=== PATIENT | female | born 1985 | race Caucasian/White ===

== ENCOUNTER 2021-11-26 09:01 | Emergency (ER) | payer OTHER, SELFPAY ==
[2021-11-26 09:13] VITALS: BP 155/103; PULSE 109; RESP 18; TEMP 36.5; O2SAT 99; BMI 35.6
--- NOTE | 2021-11-26 09:27 | ED_ITS ---
HPI - Female Genitourinary General: Chief complaint: Vaginal Bleeding Stated complaint: vaginal bleeding Time Seen by Provider: 11/26/21 09:18 Source: patient Mode of arrival: ambulatory Limitations: no limitations History of Present Illness: Patient with complaints of menses starting approximately week ago. She states it went fairly normally for approximately for 5 days. She states she was supposed to stop her. On or Saturday. However she is continue to spot occasionally since then. Spotting is occasionally bright red. She states this is unusual for her. She still has some mild suprapubic abdominal cramping. She denies any fever or urinary symptoms. She denies any dysuria or hematuria. She has no nausea or vomiting. Past surgical history includes section. She denies tubal ligation or hysterectomy. She does not have a local primary care physician. She states she takes no medications and has no other medical problems. She does not smoke. MD elicited complaint: vaginal bleeding Onset (ago): week(s) (1) Location of symptoms: suprapubic Severity: mild Female Urogenital Radiation: Suprapubic Quality of pain: cramping (mild) Vaginal bleeding: scant, bright red and dark red Exacerbating factors: none Relieving factors: none Associated symptoms: Reports abdominal pain (Mild suprapubic cramping); Deny headache(s), nausea or vaginal discharge Treatment prior to arrival: none Date of Last Menstrual Period: 11/19/21 Review of Systems Const: Denies: fever(s) or chills Eyes: Denies: change in vision ENMT: Denies: throat pain Card: Denies: chest pain or palpitations Resp: Denies: dyspnea or wheezing GI: Reports: abdominal pain (Mild suprapubic cramping); Denies: nausea, vomiting, diarrhea, change in bowel habits or hematochezia : Reports: vaginal bleeding; Denies: flank pain, difficulty voiding, dysuria, urinary frequency, hematuria or vaginal discharge Musc: Denies: neck pain or back pain Skin/Breast: Denies: rash or pruritus Neuro: Denies: headache(s) or numbness in extremities Psych: Denies: anxiety Murphy/Lymph: Denies: enlarged lymph nodes PFSH ED PFSH: Social History (Updated 11/26/21 @ 09:32 by Ken Griffin MD) Smoking and tobacco status: never smoked Alcohol intake: never Female Reproductive History: Date of last menstrual period: 11/19/21 Physical Exam Const: COMMON NORMALS: no acute distress, patient oriented x3, no limitations and well nourished GENERAL APPEARANCE: cooperative HENMT: COMMON NORMALS: normocephalic and atraumatic HEAD & SCALP: nor mocephalic and atraumatic FACE & SINUS: normal facial exam Eye: COMMON NORMALS: EOMs intact bilaterally Neck/C-Spine: COMMON NORMALS: full ROM, no lymphadenopathy, supple and no meningeal signs GENERAL: Yes normal visual inspection Lymph: LYMPHATIC: no lymphadenopathy noted Chest: COMMONS NORMALS: normal inspection of the chest and normal palpation of entire chest wall CHEST: No Ecchymosis present and No rash Resp: COMMON NORMALS: normal respiratory effort, No retractions and clear to auscultation bilaterally EFFORT & INSPECTION: No respiratory distress AUSCULTATION: clear to auscultation bilaterally Cardio: COMMON NORMALS: regular rate, regular rhythm and Peripheral pulses 2+ throughout JUGULAR VENOUS DISTENTION: no JVD RATE: regular rate, tachycardic and Other (mild tachycardia, near normal) RHYTHM: regular rhythm PERIPHERAL PULSES: Peripheral pulses 2+ throughout GI: COMMON NORMALS: Normal to inspection, nondistended, normoactive bowel sounds present and non-tender : COMMON NORMALS: Yes no CVA tenderness BLADDER/KIDNEY EXAM: Yes no CVA tenderness OB/EXTERNAL & SPECULUM: Deferred OB/external & speculum exam Back/Pelvis: COMMON NORMALS: no CVA tenderness Extremity: COMMON NORMALS: normal to inspection, full ROM and capillary refill normal Neuro: COMMON NORMALS: patient oriented x3, CN's II-XII intact bilaterally, no focal motor deficits and no sensory deficits noted MENINGEAL SIGNS: Yes no meningeal signs Psych: COMMON NORMALS: mental status grossly normal and Normal thought process present THOUGHT PROCESS: Normal thought process present Skin: COMMON NORMALS: no rashes or lesions noted and no wounds GENERAL SKIN EXAM: no rashes or lesions noted Course Vital Signs: Vital signs: Vital Signs Temperature 98.2 F 11/26/21 09:29 Pulse Rate 109 H 11/26/21 09:13 Respiratory Rate 18 11/26/21 09:47 Blood Pressure 152/97 11/26/21 09:47 Pulse Oximetry 98 11/26/21 09:47 MDM - Female Medical Decision Making Dysfunctional uterine bleeding Lab Data I reviewed the patient's lab results. Urinalysis has blood in it but this is a clean-catch specimen while she is on her menses. : 11/26/21 09:55 11/26/21 09:55 Laboratory Results WBC 6.8 10^3/uL (4.0-10.0) 11/26/21 09:55 RBC 4.69 10^6/uL (4.1-5.3) 11/26/21 09:55 Hgb 13.0 g/dL (11.5-15.3) 11/26/21 09:55 Hct 42.2 % (37.0-47.0) 11/26/21 09:55 MCV 90.0 fl (81-99) 11/26/21 09:55 MCH 27.7 pg (28.0-34.0) L 11/26/21 09:55 MCHC 30.8 g/dL (30.0-36.0) 11/26/21 09:55 RDW 14.0 % (12.1-15.1) 11/26/21 09:55 Plt Count 376 10^3/cmm (130-400) 11/26/21 09:55 MPV 10.2 fL (7.4-10.4) 11/26/21 09:55 Neut % (Auto) 72.0 % 11/26/21 09:55 Lymph % (Auto) 20.6 % 11/26/21 09:55 [place] % (Auto) 6.5 % 11/26/21 09:55 Eos % (Auto) 0.4 % 11/26/21 09:55 Baso % (Auto) 0.4 % 11/26/21 09:55 Neut # (Auto) 4.86 10^3/uL (1.8-7.7) 11/26/21 09:55 Lymph # (Auto) 1.4 10^3/uL (0.8-4.8) 11/26/21 09:55 [place] # (Auto) 0.4 10^3/uL (0.2-0.9) 11/26/21 09:55 Eos # (Auto) 0.0 10^3/uL (0.0-0.8) 11/26/21 09:55 Baso # (Auto) 0.0 10^3/uL (0.0-0.1) 11/26/21 09:55 Nucleated RBC % (auto) 0 % 11/26/21 09:55 Nucleated RBCs # 0.0 /100WBC 11/26/21 09:55 Sodium 136 mmol/L (136-145) 11/26/21 09:55 Potassium 3.9 mmol/L (3.5-5.1) 11/26/21 09:55 Chloride 102 mmol/L (98-107) 11/26/21 09:55 Carbon Dioxide 26 mmol/L (22-29) 11/26/21 09:55 Anion Gap 11.9 (5-19) 11/26/21 09:55 BUN 9 mg/dL (6-20) 11/26/21 09:55 Creatinine 0.6 mg/dL (0.5-0.9) 11/26/21 09:55 GFR Calculation 112.5 mL/min (90-130) 11/26/21 09:55 Glucose 106 mg/dL (65-115) 11/26/21 09:55 Calculated Osmolality 281 mOsm/kg (285-295) L 11/26/21 09:55 Calcium 9.7 mg/dL (8.5-10.5) 11/26/21 09:55 Total Bilirubin 0.5 mg/dL (0.15-1.2) 11/26/21 09:55 AST 16 U/L (0-32) 11/26/21 09:55 ALT 14 U/L (0-33) 11/26/21 09:55 Alkaline Phosphatase 69 IU/L (35-105) 11/26/21 09:55 Total Protein 8.1 g/dL (6.6-8.7) 11/26/21 09:55 Albumin 4.5 g/dL (3.5-5.2) 11/26/21 09:55 Globulin 3.6 g/dL (1.3-4.6) 11/26/21 09:55 HCG, Qual Negative (Negative) 11/26/21 09:55 Urine Color Colorless (Yellow) 11/26/21 09:45 Urine Appearance Clear (CLEAR) 11/26/21 09:45 Urine pH 5 (5-7) 11/26/21 09:45 Ur Specific [place] 1.005 (1.005-1.030) 11/26/21 09:45 Urine Protein Neg (Negative) 11/26/21 09:45 Urine Glucose (UA) Norm (Normal) 11/26/21 09:45 Urine Ketones Negative (Negative) 11/26/21 09:45 Urine Blood 2+ (Negative) H 11/26/21 09:45 Urine Nitrate Negative (Negative) 11/26/21:45 Urine Bilirubin Neg (Negative) 11/26/21 09:45 Urine Urobilinogen Norm mg/dL (Negative) 11/26/21 09:45 Ur Leukocyte Esterase Negative (Negative) 11/26/21 09:45 Urine RBC Rare /hpf (0-2) 11/26/21 09:45 Urine WBC None /hpf (0-5) 11/26/21 09:45 Ur Squamous Epith Cells 0-4 /hpf (0-5) H 11/26/21 09:45 Amorphous Sediment Not Reportable 11/26/21:45 Urine Bacteria Trace /hpf (NONE) 11/26/21 09:45 Other Data Laboratory appears normal except for minimal blood in the urine with clean-catch urine while on menses. Patient declined any prescription for pain medication. I encouraged her to follow-up with gynecology soon for possible ultrasound of her pelvis if symptoms persisted. She has had dysfunctional uterine bleeding only for approximately 2 to 3 days longer than she normally has. I do not believe patient requires emergent ultrasound of her pelvis at this time. 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 Discharge Plan Discharge Clinical Impression: Dysfunctional uterine bleeding Prescriptions: No Action No Known Home Medications 0RF Coding Level of Care Code ED Secretary To The Vice President for Chg Fwd Exam Comprehensive
[2021-11-26 09:29] VITALS: BP 148/106; RESP 158; TEMP 36.8; O2SAT 99
[2021-11-26 09:47] VITALS: BP 152/97; RESP 18; O2SAT 98
--- NOTE | 2021-11-26 10:06 | PC.NURSE ---
c/o abnormal bleeding, no s/s of distress. Urine & blood to lab. Spouse @BS. She does report mild low back pain, denies n/v.
[2021-11-26 10:09] LABS: Basophils % 0.4 %; Eosinophils % 0.4 %; Hematocrit 42.2 % (37.0-47.0); Lymphocytes # 1.4 10^3/uL (0.8-4.8); Lymphocytes % 20.6 %; Mean Corpuscular HGB Conc 30.8 g/dL (30.0-36.0); Mean Corpuscular Hemoglobin 27.7 pg (28.0-34.0); Mean Platelet Volume 10.2 fL (7.4-10.4); Monocytes # 0.4 10^3/uL (0.2-0.9); Monocytes % 6.5 %; Neutrophils # 4.86 10^3/uL (1.8-7.7); Nucleated Red Blood Cells % 0 %; Platelet Count 376 10^3/cmm (130-400); Red Blood Count 4.69 10^6/uL (4.1-5.3); White Blood Count 6.8 10^3/uL (4.0-10.0)
[2021-11-26 10:38] LABS: Glucose Urine UA Norm (Normal); Ketones Urine Negative (Negative); Protein Urine Neg (Negative); Specific Gravity, Urine 1.005 (1.005-1.030); Urine Appearance Clear (CLEAR); Urine Color Colorless (Yellow); pH Urine 5 (5-7)
[2021-11-26 10:39] LABS: Add Urine Culture? No; Bacteria Urine TRACE /hpf; Bilirubin Urine Neg (Negative); Blood Urine 2+ (Negative); Leukocyte Esterase Urine Negative (Negative); Nitrate Urine Negative (Negative); RBC Urine RARE /hpf (0-2); Squamous Epithelial Cell Urine 0-4 /hpf (0-5); Urobilinogen Urine Norm (Negative)
[2021-11-26 10:45] LABS: HCG, Serum Qual Negative (Negative)
[2021-11-26 10:50] LABS: Alanine Aminotransferase 14 U/L (0-33); Albumin Level 4.5 g/dL (3.5-5.2); Alkaline Phosphatase 69 IU/L (35-105); Anion Gap 11.9 (5-19); Aspartate Amino Transferase 16 U/L (0-32); Blood Urea Nitrogen 9 mg/dL (6-20); Calcium 9.7 mg/dL (8.5-10.5); Carbon Dioxide 26 mmol/L (22-29); Chloride 102 mmol/L (98-107); Globulin 3.6 g/dL (1.3-4.6); Glomerular Filtration Rate 112.5 mL/min (90-130); Glucose 106 mg/dL (65-115); Osmolality Calculated 281 mOsm/kg (285-295); Potassium 3.9 mmol/L (3.5-5.1); Sodium 136 mmol/L (136-145); Total Bilirubin 0.5 mg/dL (0.15-1.2); Total Protein 8.1 g/dL (6.6-8.7)
[2021-11-26 11:17] VITALS: BP 141/98; RESP 18; TEMP 36.7; O2SAT 99
== END 2021-11-26 11:18 | disposition home or self-care (01) ==
PROVIDERS: Emergency Provider Family Medicine
DX: N93.8 Other specified abnormal uterine and vaginal bleeding (principal)
CPT/HCPCS: 80053; 81001; 84703; 85025; 99283

== ENCOUNTER → 2021-12-07 13:50 | Outpatient (BNVA) | payer OTHER, SELFPAY | PROVIDERS: Visit Provider Obstetrics & Gynecology | DX: N93.9 Abnormal uterine and vaginal bleeding, unspecified (principal); Z12.4 Encounter for screening for malignant neoplasm of cervix | CPT/HCPCS: 84443; 85025; 87624; 88305 ==

== ENCOUNTER 2021-12-27 08:30 | Outpatient (CLI) | payer OTHER, SELFPAY ==
--- NOTE | 2021-12-27 08:45 | US_ITS ---
WS: [id number] TRANSABDOMINAL PELVIC AND TRANSVAGINAL PELVIC ULTRASOUND HISTORY: N93.9 - Abnormal uterine and vaginal bleeding, unspecified COMPARISON: None available. Uterus: 8.3 cm x 5.4 cm x 3.8 cm. Normal size anteverted uterus. On transvaginal imaging there is mil d asymmetry of the anterior and posterior myometrium with respect to the endometrium. There is increa sed diameter of the anterior myometrium which may be due to an occult fibroid or adenomyosis. Endometrium: 0.8 cm. The endometrium is intermittently visualized. Normal size. No mass identified. Right ovary: 2.1 cm x 1.7 cm x 1.3 cm. Normal size ovary. Normal vascularity. Left ovary: 2.4 cm x 1.8 cm x 1.8 cm. Normal size ovary with small follicles. There is a collapsing f ollicle in the ovary. No solid mass. Normal vascularity. Trace free fluid. US/US pelvic with transvaginal IMPRESSION: 1. No endometrial abnormality identified. 2. Mild increased width of the anterior myometrium with respect to the endomet rium and posterior myometrium. Occult fibroid, adenomyosis or technical factors may be responsible for this. No mass identified.
== END 2021-12-27 08:31 | disposition home or self-care (01) ==
LOC: RAD 08:31
PROVIDERS: Visit Provider Obstetrics & Gynecology
DX: N93.9 Abnormal uterine and vaginal bleeding, unspecified (principal)
CPT/HCPCS: 76830; 76856

== ENCOUNTER → 2022-10-23 11:37 | Outpatient (BNVA) | payer OTHER, SELFPAY | PROVIDERS: Visit Provider Nurse Practitioner Family | DX: B37.31 Acute candidiasis of vulva and vagina (principal) | CPT/HCPCS: 81003 ==